=== PATIENT | female | born 1960 | race Caucasian/White ===

== ENCOUNTER 2020-05-12 12:46 | Outpatient (CLI) | payer BC, SELFPAY ==
[2020-05-12 14:24] LABS: Alanine Aminotransferase 18 U/L (4-35); Aspartate Amino Transferase 25 U/L (14-36); Cholesterol 167 mg/dL (0-200); HDL Direct 44 mg/dL; Triglycerides 127 mg/dL (<150)
[2020-05-12 14:35] LABS: LDL Cholesterol Direct 99 mg/dL
[2020-05-12 14:52] LABS: Add Urine Microscopic? YES; Appearance Urine Clear (Clear); Bilirubin Urine Negative (Negative); Blood Urine Negative (Negative); Color Urine Yellow (Yellow); Glucose Urine UA 3+ mg/dL (Negative); Ketones Urine Trace mg/dL (Negative); Leukocyte Esterase Ur Trace LEU/UL (NEGATIVE); Mucus Urine Rare /lpf; Nitrate Urine Negative (Negative); Protein Urine Negative (Negative); RBC Urine 0-2 /hpf (0-2); Specific Grav Ur 1.024 (1.001-1.035); Squamous Epithelial Cell Urine Few /hpf (Few); Urobilinogen Urine Negative mg/dL (<2.0); WBC Urine 0-3 /hpf (0-3)
== END 2020-05-12 12:47 | disposition home or self-care (01) ==
PROVIDERS: PCP Family Medicine; Visit Provider Internal Medicine Cardiovascular Disease
DX: E78.5 Hyperlipidemia, unspecified (principal); E11.69 Type 2 diabetes mellitus with other specified complication
CPT/HCPCS: 36415; 80061; 81001; 84450; 84460

== ENCOUNTER 2020-12-24 14:09 | Outpatient (CLI) | payer BC, SELFPAY ==
--- NOTE | ~2020-12-24 | US_ITS ---
EXAMINATION: US art doppler w press DOTTY PEACE DATE: 12/24/2020 16:29 ECOLOGIST INDICATION: Lower extremity pain TECHNIQUE: Segmental pressures and plethysmographic and Doppler waveforms of the brachial and lower e xtremity arteries were obtained. COMPARISON: None. FINDINGS: Right and left brachial artery pressures of 129 mm Hg and 136 mm Hg, respectively, are concordant (no rmal difference <= 30 mmHg). The right high-thigh pressure index is 1.23 (normal > 1.2). The right ankle-brachial index (TANJA) is 1 .2 (normal >= 0.9-1.0). The right great toe-brachial index (TBI) is 0.87 (normal >= 0.60). The right lower extremity segmental pressure gradients are normal (normal gradients <= 20-30 mmHg between adjac ent levels on the same leg or the same levels on the two legs). Arterial Doppler waveforms are biphas ic. The left high-thigh pressure index is 1.26. The left TANJA is 1.07. The left TBI is 0.85. The left lowe r extremity segmental pressure gradients are normal. Arterial Doppler waveforms are biphasic. IMPRESSION: 1. Normal lower extremity arterial Doppler. Reviewed, dictated and finalized at location A. OGIST
== END 2020-12-24 14:10 | disposition home or self-care (01) ==
LOC: ANHIMG 14:13
PROVIDERS: PCP Family Medicine; Visit Provider Internal Medicine Cardiovascular Disease
DX: M79.604 Pain in right leg (principal); M79.605 Pain in left leg
CPT/HCPCS: 93923

== ENCOUNTER 2022-08-21 09:39 | Outpatient (CLI) | payer BC, SELFPAY ==
[2022-08-21 10:30] LABS: Anion Gap 10 mmol/L (8-16); Blood Urea Nitrogen 12 mg/dL (7-17); Calcium 9.3 mg/dL (8.4-10.2); Carbon Dioxide 31 mmol/L (22-30); Chloride 99 mmol/L (98-107); Estimated Glomerular Filt Rate > 60; Glucose 160 mg/dL (65-110); Potassium 3.4 mmol/L (3.4-5.0); Sodium 140 mmol/L (137-145)
--- NOTE | 2022-08-21 10:30 | ECG_ITS ---
Measurements Intervals [place] Rate: 79 P: 27 MA: 170 QRS: 1 QRSD: 102 T: 74 QT: 369 QTc: 424 Interpretive Statements SINUS RHYTHM BASELINE ARTIFACT LOW-VOLTAGE QRS IN PRECORDIAL LEADS NONSPECIFIC T-WAVE ABNORMALITY BORDERLINE ECG NO PREVIOUS ECG AVAILABLE FOR COMPARISON Electronically Signed On 08-21-2022 15:10:31 CDT by Lei Sarkar M.D.
== END 2022-08-21 09:40 | disposition home or self-care (01) ==
LOC: ANHSURGERY 09:44
PROVIDERS: Anesthesiology; PCP Family Medicine; Visit Provider Orthopaedic Surgery
DX: E11.9 Type 2 diabetes mellitus without complications (principal); Z01.818 Encounter for other preprocedural examination; R94.31 Abnormal electrocardiogram [ECG] [EKG]
CPT/HCPCS: 36415; 80048; 93005

== ENCOUNTER 2022-08-23 02:18 | Day surgery (SDC) | payer BC, SELFPAY ==
[2022-08-16 14:58] VITALS: BMI 24.2
--- NOTE | 2022-08-16 15:09 | PC.NURSE ---
Report to the Outpatient Waiting Room, entrance under the green pavilion located off [facility], at time 10:00 on date 08/23/22. OR Time: 12:00. Time changes happen often and if your time is changed the preop area will call you the afternoon before. - You and your visitor will be asked to self-screen and do not enter if you have any COVID symptoms. - Only one visitor and NO children visitors are allowed at this time. - The patient visitor is requested to leave or wait in car when not with patient due to restrictions. - A mask is required within the hospital. Patients may have clear liquids (water, carbonated beverages, clear teas, apple juice) until 3 hours prior to surgery (9:00) with a maximum of 20 ounces. - No food from midnight until time of surgery Take the following medications with a SIP of water the morning of surgery: CARVEDILOL Medications to discontinue per physician: PLAVIX Date to take last dose: PER DR. HENRIQUEZ Please no make-up, nail zambian, hairspray, perfume, deodorant, or body powder the day of surgery. No jewelry (including any body piercings) or valuables the day of surgery, leave them at home. Please take a shower or bath the night before, or the morning of, surgery with an antibacterial soap. Wear comfortable, loose fitting clothing. - Jewelry must be removed prior to entering the operating room. Rings and piercings that are not removed may be cut off. - The hospital will not accept responsibility for valuables. - Please leave all valuables, including medications, at home the day of surgery. If you are going home after surgery, a licensed chain saw driver must drive you home. - NO public transportation without another adult. - We recommend that an adult stay with you for 24 hours following discharge. - We also recommend that you do not drive, make important decision, drink alcoholic beverages, or take any drugs that were not prescribed by your health care provider for at least 24 hours after your discharge time. Follow any additional instructions given to you from your surgeon. If you or anyone in your household have experienced Covid symptoms in the past week, please notify your surgeon or the nurse liaison at the phone number below for possible testing. Telephone instructions given to PT - GEOFF CHAPMAN and asked if any additional questions and then verbalized understanding. Patient advised to call surgeon office or pre surgery nurse liaison [phone] if any additional questions.
--- NOTE | 2022-08-22 16:20 | PM.IMHP ---
H&P: HPI History of Present Illness Date/Time: 08/22/22 16:20 Chief Complaint: Right carpal tunnel syndrome Narrative: 61-year-old female patient of Dr. Villegas who presents for right carpal tunnel release. She has been complaining of pain and numbness in both of her hands right being more symptomatic than the left. This is been going on for several months. Patient has had EMG nerve conduction velocity done in October of 2021. It does show carpal tunnel syndrome on the right. Patient feels that she is having symptoms on a regular basis they are bad enough that she would like to proceed at this point with surgery and presents today for that. Review of Systems Review of Systems: All systems reviewed & are unremarkable except as noted in HPI and below PMFSH Past Medical History Medical History (Updated 08/23/22 @ 09:55 by Yousuf Gabriel DO) CVA (cerebral vascular accident) Diabetes type 2, controlled Hyperlipidemia Hypertension Pacemaker Surgical History Surgical History (Updated 08/23/22 @ 09:55 by Yousuf Gabriel DO) History of tubal ligation Social History Social History Smoking status: Never smoker Alcohol intake: never Substance use: never Substance use type: does not use Living arrangements: with family Spiritual care concerns: No Meds Home Medications and Allergies Home Medications Medication Instructions Recorded Confirmed Type atorvastatin 40 mg tablet 40 mg PO HS 08/16/22 08/23/22 History carvedilol 25 mg tablet 25 mg PO DAILY 08/16/22 08/23/22 History clopidogrel 75 mg tablet 75 mg PO DAILY 08/16/22 08/16/22 History cyanocobalamin (vitamin B-12) 1,000 mcg subcut [id number] 08/16/22 08/23/22 History 1,000 mcg/mL injection solution lisinopril 10 mg tablet 10 mg PO DAILY 08/16/22 08/23/22 History metformin 500 mg tablet,extended 1,000 mg PO DAILY 08/16/22 08/23/22 History release 24 hr semaglutide 7 mg tablet (Rybelsus) 7 mg PO DAILY 08/16/22 08/23/22 History sitagliptin 100 mg tablet (Januvia) 100 mg PO DAILY 08/16/22 08/23/22 History spironolactone 25 mg tablet 25 mg PO DAILY 08/16/22 08/23/22 History Allergies Allergy/AdvReac Type Severity Reaction Status Date / Time hydrocodone AdvReac Intermediate N/V;DIZZINE Verified 08/23/22 10:18 SS Exam Narrative: 61-year-old female alert pleasant. She is 5 ft tall and 127 lb. Her neck range of motion causes some mild soreness. Negative Spurling's maneuver. Her right wrist she has a negative Tinel's over the median nerve, positive carpal tunnel compression test which causes tingling in the fingers. Positive Phalen's maneuver. 2+ radial pulse. She reports subtle sensation of tingling primarily in the central 3 fingers right hand. Full range of motion of the wrist and fingers. No swelling in the wrist or fingers. Resp: Auscultation: clear to auscultation bilaterally Cardio: Rate: regular rate Rhythm: regular rhythm Assessment and Plan Assessment and plan (1) Right carpal tunnel syndrome: Code(s): G56.01 - Carpal tunnel syndrome, right upper limb Status: Acute Plan 61-year-old female who has right carpal tunnel syndrome with symptoms on a daily basis. She does have a positive EMG study. Again patient would like to proceed with surgery at this point rather continue nonsurgical treatment. Surgical procedure as well as the risks and complications were discussed in detail questions were answered and we will proceed. Patient will see her primary care doctor for pre-surgical clearance. She will also see Dr. Espinoza the quality control scientist. She has a history of diabetes as well as a pacemaker. She will stop her Plavix 1 week prior to surgery but maintain her baby aspirin through the time of surgery due the fact she has had a CVA in the past. Patient did have an echo done which showed normal left ventricular systolic function with ejectio
[2022-08-23] VITALS (8 sets, daily range): BP systolic 83–135; BP diastolic 49–77; PULSE 68–89; RESP 13–16; TEMP 26.6–36.5; O2SAT 95–100
--- NOTE | 2022-08-23 09:54 | WPDANESEPPF ---
Anes - Initial Pre Proc Eval Procedure: Operation Date: 08/23/22 12:00 Proposed Procedures p Right Carpal Tunnel Release - Barron Fuentes MD Date/Time: 08/23/22 09:54 Surgeon: Barron Fuentes MD Pre Op Diagnosis: Right Carpal Tunnel Syndrome Patient Data Age: 61 Gender: F Height: 1.5 m Weight: 54.43 kg Allergies Allergy/AdvReac Type Severity Reaction Status Date / Time hydrocodone AdvReac Intermediate N/V;DIZZINE Verified 08/16/22 14:54 SS Home Medications Medication Instructions Recorded Confirmed Type atorvastatin 40 mg tablet 40 mg PO HS 08/16/22 08/16/22 History carvedilol 25 mg tablet 25 mg PO DAILY 08/16/22 08/16/22 History clopidogrel 75 mg tablet 75 mg PO DAILY 08/16/22 08/16/22 History cyanocobalamin (vitamin B-12) 1,000 mcg subcut [id number] 08/16/22 08/16/22 History 1,000 mcg/mL injection solution lisinopril 10 mg tablet 10 mg PO DAILY 08/16/22 08/16/22 History metformin 500 mg tablet,extended 1,000 mg PO DAILY 08/16/22 08/16/22 History release 24 hr semaglutide 7 mg tablet (Rybelsus) 7 mg PO DAILY 08/16/22 08/16/22 History sitagliptin 100 mg tablet (Januvia) 100 mg PO DAILY 08/16/22 08/16/22 History spironolactone 25 mg tablet 25 mg PO DAILY 08/16/22 08/16/22 History Patient hx anesthesia problems: none Family hx anesthesia problems: none Results Review: All pre-operative results and documents have been reviewed as part of the pre-operative evaluation. [facility] Past Medical History Medical History (Updated 08/23/22 @ 09:55 by Yousuf Gabriel DO) CVA (cerebral vascular accident) Diabetes type 2, controlled Hyperlipidemia Hypertension Pacemaker Surgical History Surgical History (Updated 08/23/22 @ 09:55 by Yousuf Gabriel DO) History of tubal ligation Social History Social History Smoking status: Never smoker Alcohol intake: never Substance use: never Substance use type: does not use Living arrangements: with family Spiritual care concerns: No Anes - Eval Final PreProcedure Day of Procedure 08/23/22 09:54 Patient weight: obese Heart: regular rate and rhythm Lungs: clear to auscultation Airway: Mallampati scale class III Neurological: alert and oriented Last oral intake: >/= 8 hours ASA classification: III Emergent: no Anesthetic plan: proceed Anesthesia type and monitoring: general LMA and standard monitoring Results Review: All pre-operative results and documents have been reviewed as part of the pre-operative evaluation. Informed Consent: The patient's anesthetic plan and its attendant risks and benefits were discussed with the patient/family/POA. Questions were solicited and answers provided to the satisfaction of the patient/family/POA.
[2022-08-23] MEDS: ACETAMINOPHEN 500 MG TABLET 1000 MG PO (10:28)
[2022-08-23] MEDS: LACTATED RINGERS 1,000 ML 30 ML IV CONT ×2 (10:40→12:28)
[2022-08-23 10:46] LABS: Glucose Point of Care 148 mg/dl (65-105)
--- NOTE | 2022-08-23 11:16 | WPDHPUPDATE1 ---
History and Physical Update Update Date/Time: 08/23/22 11:16 History and Physical has been reviewed, including an updated exam of the patient. There are NO changes in the patient's condition. Risks, benefits, and alternatives have been discussed and questions answered. Patient agrees to proceed with procedure.
[2022-08-23] MEDS: KETOROLAC 15 MG/ML VIAL (*BKC) IV PUSH (11:18)
[2022-08-23] MEDS: ceFAZolin 2 GM/D5W 50 ML 2 GM/50 ML BAG IVPB (11:48)
[2022-08-23 12:34] LABS: Glucose Point of Care 104 mg/dl (65-105)
--- NOTE | 2022-09-08 14:13 | P.OP_ITS ---
Procedure Note - Detailed Date of Procedure 08/23/22 Pre-op Diagnosis Right Carpal Tunnel Syndrome Post-op Diagnosis Same Procedure Performed Right carpal tunnel release Surgeon Barron Fuentes MD Anesthesia General Description of Procedure patient was brought to the operating room and general anesthesia was administered to the right arm was prepped and draped in usual fashion. Local anesthesia 1% lidocaine was administered. Limb was exsanguinated tourniquet elevated to 200 mmHg. A 2 cm longitudinal incision was made the base of the palm in line with the radial border of the 4th ray. Incision was carried down through the superficial palmar fascia to the transverse carpal ligament which was longitudinally released. complete release was achieved distally. Proximally the subcutaneous fat was elevated off the distal volar forearm fascia and a Mohawk elevator pass underneath the fascia to from the underlying nerve in the fascia split for distance of 3 cm proximal to the flexor crease the risk completed decompression. The nerve appeared unremarkable no masses in the canal. Wound was irrigated tourniquet released hemostasis was achieved skin closed with 5 0 nylon suture and a soft bulky dressing applied patient transferred to postop recovery room in stable condition. Estimated Blood Loss -5.0 Tourniquet Time 10 Complications No immediate complications Condition Stable Disposition PACU
== END 2022-08-23 14:35 | disposition home or self-care (01) ==
PROVIDERS: PCP Family Medicine; Visit Provider Orthopaedic Surgery
PROC: (CPT 64721; principal; 2022-08-23 12:00)
DX: G56.01 Carpal tunnel syndrome, right upper limb (principal); E11.9 Type 2 diabetes mellitus without complications; E78.5 Hyperlipidemia, unspecified; I10 Essential (primary) hypertension; Z95.0 Presence of cardiac pacemaker; Z86.73 Personal history of transient ischemic attack (TIA), and cerebral infarction without residual deficits; Z79.02 Long term (current) use of antithrombotics/antiplatelets; Z79.84 Long term (current) use of oral hypoglycemic drugs
CPT/HCPCS: 64721; 82948; A9270; J0690; J1100; J1885; J2250; J2370; J2405; J2704; J3010; J7120

== ENCOUNTER 2023-01-27 11:57 | Inpatient (IN) | payer BC, MEDICARE, SELFPAY ==
[2023-01-27] VITALS (17 sets, daily range): BP systolic 112–170; BP diastolic 55–88; PULSE 77–89; RESP 12–23; TEMP 36.6–36.7; O2SAT 95–99
--- NOTE | ~2023-01-27 | CT_ITS ---
EXAMINATION: CT brain wo con DATE: 01/27/2023 12:39 INDICATION: Right-sided numbness TECHNIQUE: Computed tomography (CT) of the head was performed without intravenous contrast. Sagittal and coronal reconstructions were performed. The mA was adjusted according to patient size. Iterative reconstruction technique was employed. The dose-length product was 605.33 mGy-cm. COMPARISON: head CT dated 10/31/2018 FINDINGS: Unchanged small old lacunar infarcts at the bilateral basal ganglia and left sameera and additional smal l old infarct in the right cerebral hemisphere. New small region of encephalomalacia consistent with interval development of an additional small old infarct in the right frontotemporoparietal region colleen ng the posterior aspect of the sylvian fissure. No acute intracranial hemorrhage, acute infarction or abnormal extra axial fluid collection. There is moderate scattered white matter hypoattenuation cons istent with chronic small vessel ischemic disease. Ventricles are normal and symmetric. No mass/mass effect. Intracranial calcified cerebral atherosclerosis is noted. The orbits, paranasal sinuses and m astoid air cells are normal. IMPRESSION: 1. No acute intracranial process. 2. Small old infarct in the right frontotemporoparietal region which is new since the prior study and a few additional unchanged old infarcts at the bilateral basal ganglia, left sameera and right cerebell ar hemisphere. 3. Moderate scattered white matter hypoattenuation consistent with chronic small vessel ischemic dise ase. Reviewed, dictated and finalized at location A. T STOCKMAN IMPRESSION: 1. No acute intracranial process. 2. Small old infarct in the right frontotemporoparietal region which is new sin ce the prior study and a few additional unchanged old infarcts at the bilateral basal ganglia, left sameera and right cerebellar hemisphere. 3. Moderate scattered white matter hypoattenuation consistent with chronic smal l vessel ischemic disease.
--- NOTE | ~2023-01-27 | CT_ITS ---
CT ANGIOGRAM NECK AND HEAD History: CVA. Technique: Noncontrast imaging through the brain was performed. Serial spiral axial images through th e head and neck were then obtained during arterial phase IV injection of 100 cc of Omnipaque 350. 3-D postprocessing and MIP images were then reconstructed on the remote workstation. Dose reduction tech nique was used on this scan by utilizing automated exposure control and iterative reconstruction tech nique. The dose-length product (DLP) was 1365.54 mGy-cm. COMPARISON: 01/27/2023 CTA neck findings: Bilateral vertebral are patent. There is a probable focal high-grade stenosis of the distal right vertebral artery related to prominent calcified plaque (series 5 images 140-143). Th ere is a probable moderate focal stenosis of the distal left vertebral artery at the site of calcifie d plaque (series 5 images 141-143). Bilateral common carotid, internal carotid, and external carotid arteries are patent. The proximal ri ght internal carotid artery demonstrates 0% stenosis relative to the normal distal artery lumen diame ter. The proximal left internal carotid artery demonstrates 0% stenosis relative to the normal distal artery lumen diameter. CTA head findings: Basilar artery and posterior cerebral arteries are patent. Distal internal carotid arteries, middle cerebral arteries, and anterior cerebral arteries are patent. There is extensive at herosclerotic calcification the cavernous portions of the distal internal carotid arteries, with prob able moderate to high-grade stenosis in the cavernous portion of the distal right internal carotid ar reynold. No large vessel occlusion or aneurysm. No acute abnormality evident on noncontrast brain CT images. Impression: Focal high-grade stenosis of the distal right vertebral artery, as detailed above. Focal moderate kimberlee nosis of the distal left vertebral artery, as detailed above. Atherosclerotic calcifications in the bilateral cavernous internal carotid arteries, with probable fo tony moderate stenosis in the cavernous distal right internal carotid artery. No stenosis or occlusion at the proximal internal cervical carotid arteries. No other significant findings. Reviewed, dictated and finalized at location . Impression: Focal high-grade stenosis of the distal right vertebral artery, as detailed abo ve. Focal moderate stenosis of the distal left vertebral artery, as detailed ab ove. Atherosclerotic calcifications in the bilateral cavernous internal carotid marie zulema, with probable focal moderate stenosis in the cavernous distal right inter nal carotid artery. No stenosis or occlusion at the proximal internal cervical carotid arteries. No other significant findings.
--- NOTE | ~2023-01-27 | XR_ITS ---
EXAMINATION: XR chest 1V DATE: 01/27/2023 12:41 INDICATION: Right-sided numbness TECHNIQUE: frontal view of the chest was obtained. COMPARISON: Chest radiograph dated 11/02/2018 FINDINGS: The lungs remain clear with no focal airspace opacities, pulmonary edema, pleural effusion or pneumot horax. The cardiomediastinal silhouette is normal. Dual lead pacemaker seen with leads projecting ove r the expected locations of the right atrium and right ventricle. Cholecystectomy clips in right uppe r quadrant. IMPRESSION: 1. No acute cardiopulmonary disease. Reviewed, dictated and finalized at location A. EMIC INTERVENTIONIST
--- NOTE | 2023-01-27 12:21 | ECG_ITS ---
Measurements Intervals [place] Rate: 81 P: 33 WI: 192 QRS: -20 QRSD: 102 T: 8 QT: 356 QTc: 416 Interpretive Statements SINUS RHYTHM LEFT VENTRICULAR HYPERTROPHY WITH ST-T CHANGE BORDERLINE R WAVE PROGRESSION, ANTERIOR LEADS BASELINE ARTIFACT- I, II, III, AVR, AVL, AVF, V1-V6 BORDERLINE ECG COMPARED TO ECG 08/21/2022 10:19:25 NO SIGNIFICANT CHANGES Electronically Signed On 01-27-2023 12:35:28 CARE TRANSITION MANAGER by Ivan Purcell D.O.
--- NOTE | 2023-01-27 12:22 | ED.GENADULT ---
HPI - General Adult General Chief complaint: Neuro Symptoms/Deficit Stated complaint: FACIAL DROOPING, SPEECH SLURRED X1 DAY Time Seen by Provider: 01/27/23 12:03 Source: EMS and RN notes reviewed History of Present Illness HPI narrative: Patient presents emergency department from home for right-sided facial droop. Patient states symptoms began around noon on January 26 states that she has had drooping of the right side of her face as well as slurred speech also notes that she has been having trouble drinking from that side states that she has noted no weakness in her arms or legs states she does have a history of previous TIAs as well as previous strokes and is currently on Plavix which she has been taking she denies any fevers or chills chest pain shortness of breath or any other symptoms Related Data Home Medications Medication Instructions Recorded Confirmed atorvastatin 40 mg tablet 40 mg PO HS 08/16/22 08/23/22 carvedilol 25 mg tablet 25 mg PO DAILY 08/16/22 08/23/22 clopidogrel 75 mg tablet 75 mg PO DAILY 08/16/22 08/16/22 cyanocobalamin (vitamin B-12) 1,000 mcg subcut [id number] 08/16/22 08/23/22 1,000 mcg/mL injection solution lisinopril 10 mg tablet 10 mg PO DAILY 08/16/22 08/23/22 metformin 500 mg tablet,extended 1,000 mg PO DAILY 08/16/22 08/23/22 release 24 hr semaglutide 7 mg tablet (Rybelsus) 7 mg PO DAILY 08/16/22 08/23/22 sitagliptin phosphate 100 mg 100 mg PO DAILY 08/16/22 08/23/22 tablet (Januvia) spironolactone 25 mg tablet 25 mg PO DAILY 08/16/22 08/23/22 Allergies Allergy/AdvReac Type Severity Reaction Status Date / Time hydrocodone AdvReac Intermediate N/V;DIZZINE Verified 01/27/23 12:13 SS Review of Systems Review of Systems: Gen.: Denies fevers or chills Eyes: Denies eye pain or visual change ENT: Denies congestion Respiratory: Denies shortness of breath or cough CV: Denies chest pain or palpitations GI: Denies abdominal pain nausea, emesis or diarrhea Musculoskeletal: Denies back pain or muscle pain Neuro see HPI Skin: Denies rash Except as documented, all other systems reviewed and negative [facility] Past Medical History Medical History (Updated 01/27/23 @ 14:34 by Wilfred Arce DO) CVA (cerebral vascular accident) Diabetes type 2, controlled Hyperlipidemia Hypertension Pacemaker Surgical History Surgical History (Updated 01/27/23 @ 14:23 by Keila Casillas NP) History of carpal tunnel release History of tubal ligation Hx laparoscopic cholecystectomy Family History Family History (Updated 01/27/23 @ 14:24 by Keila Casillas NP) Mother Acute myocardial infarction Cerebrovascular accident Carcinoma of colon Breast cancer Hypertension Heart disease Diabetes mellitus Father Hypertension Acute myocardial infarction Lung disease Sibling Liver cancer Diabetes mellitus Social History Social History (Updated 01/27/23 @ 14:25 by Keila Casillas NP) 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 Smoking status: Never smoker Alcohol intake: never Substance use: never Substance use type: does not use Living arrangements: with family Gender identity (if verbalized by the patient): Female Sexual Orientation (if Verbalized by the Patient): Straight or Heterosexual Spiritual care concerns: No Exam Narrative: APPEARANCE: No acute distress, nontoxic, resting in bed HEENT: Normocephalic, atraumatic, OMM, TMs clear bilaterally EYES: PERRL, EOMI RESPIRATORY: No respiratory distress, clear to auscultation bilaterally with no rhonchi wheezing or rales CARDIOVASCULAR: RRR s murmur ABDOMINAL: Soft, nontender, nondistended MUSCULOSKELETAL: Moves all extremities. No clubbing, cyanosis or edema. NEURO: A and O ?4, following commands, speech normal, right-sided facial droop, muscle strength 5 out of 5 in the bilateral upper and lower extremities, decreased sensation over the right face as well as the right upper extremity with normal
[2023-01-27 12:36] LABS: Basophils Absolute Auto 0.1 K/mm3 (0.0-0.1); Basophils Percent Auto 1.2 % (0.2-1.2); Eosinophils Absolute Auto 0.4 K/mm3 (0-0.3); Eosinophils Percent Auto 6.5 % (0-4.4); Hematocrit 40.8 % (37.0-47.0); Hemoglobin 13.7 g/dL (12.0-15.0); Immature Granulocyte Absolute 0.02 K/mm3 (0.00-0.031); Immature Granulocyte Percent A 0.3 % (0-0.5); Lymphocytes Absolute Auto 1.54 K/mm3 (0.9-3.2); Lymphocytes Percent Auto 26.9 % (18.3-44.2); Mean Corpuscular HGB Conc 33.6 g/dl (32-36); Mean Corpuscular Hemoglobin 29.8 pg (26-34); Mean Corpuscular Volume 88.7 fl (80-100); Mean Platelet Volume 11.5 fl (7.4-10.4); Monocytes Absolute Auto 0.4 K/mm3 (0.1-0.6); Monocytes Percent Auto 6.3 % (2.6-8.5); Neutrophils Absolute Auto 3.4 K/mm3 (1.3-6.7); Neutrophils Percent Auto 58.8 % (45.5-73.1); Platelet Count Result 165 k/mm3 (150-375); Red Cell Distribution Width 13.2 % (11.5-14.5); White Blood Count 5.7 K/mm3 (4.5-10.0)
[2023-01-27 12:51] LABS: Alanine Aminotransferase 17 U/L (6-35); Albumin Level 4.6 g/dL (3.5-5.1); Alkaline Phosphatase 60 U/L (38-126); Anion Gap 6 mmol/L (8-16); Aspartate Amino Transferase 21 U/L (14-36); Bilirubin,Total 0.5 mg/dL (0.2-1.3); Blood Urea Nitrogen 11 mg/dL (7-17); Calcium 9.3 mg/dL (8.4-10.2); Carbon Dioxide 32 mmol/L (22-30); Chloride 101 mmol/L (98-107); Estimated Glomerular Filt Rate > 60; Glucose 101 mg/dL (65-110); Potassium 3.8 mmol/L (3.4-5.0); Prothrombin Time 12.8 Seconds (11.1-14.7); Sodium 139 mmol/L (137-145)
[2023-01-27 12:52] LABS: Partial Thromboplastin Time 28.1 SECONDS (22.3-36.8)
[2023-01-27 13:02] LABS: Troponin I < 0.012 ng/mL (0.000-0.034)
--- NOTE | 2023-01-27 14:20 | PM.IMHP ---
H&P: HPI History of Present Illness Date/Time: 01/27/23 14:20 Chief Complaint: Neuro symptoms Narrative: This is a 62-year-old female patient who has a history of hypertension, diabetes and CVAs. The patient came to the emergency room due facial droop. This started around noon on January 26 the patient stated that she had drooping on the right side of her face as well as slurred speech and was having difficulty drinking from the side. The patient is currently on Plavix. Head CT was read as the followingNo acute intracranial process. 2. Small old infarct in the right frontotemporoparietal region which is new since the prior study and a few additional unchanged old infarcts at the bilateral basal ganglia, left sameera and right cerebellar hemisphere. 3. Moderate scattered white matter hypoattenuation consistent with chronic small vessel ischemic disease. Neurology has been consulted. Troponin nonreactive x2. Chest x-ray was read as no acute cardiopulmonary disease. The patient is being admitted to observation status on the date of service of 01/27/2023. Review of Systems Review of Systems: See HPI All systems reviewed & are unremarkable except as noted in HPI and below Constitutional: Constitutional: Reports as per HPI and Reports no additional constitutional complaints Eyes: Eyes: Reports as per HPI and Reports no additional eye complaints ENT: Reports system reviewed and no additional complaints, except as documented and Reports Normal hearing present Cardiovascular: Cardiovascular: Reports no additional cardiovascular complaints Respiratory: Respiratory: Reports no additional respiratory complaints and Reports no additional respiratory complaints Gastrointestinal: Gastrointestinal: Reports as per HPI and Reports no additional gastrointestinal complaints Musculoskeletal: Musculoskeletal: Reports no additional musculoskeletal complaints Integumentary/Breasts: Skin/Breast: Reports system reviewed and no additional complaints, except as docu and Reports as per HPI Neurologic: Reports system reviewed and no additional complaints, except as documented, Reports as per HPI and Reports Normal hearing present Psychiatric: Psychiatric: Reports no additional psychiatric complaints and Reports as per HPI Endocrine: Endocrine: Reports no additional endocrine complaints Hematologic/Lymphatic: Hematologic/Lymphatic: Reports no additional hematologic/lymphatic complaints Allergic/Immunologic: Allergic/Immunologic: Reports no additional allergic/immunologic complaints [facility] Past Medical History Medical History (Updated 01/27/23 @ 19:18 by Keila Casillas NP) CVA (cerebral vascular accident) Diabetes type 2, controlled Hyperlipidemia Hypertension Mitral valve prolapse Pacemaker Surgical History Surgical History (Updated 01/27/23 @ 14:23 by Keila Casillas NP) History of carpal tunnel release History of tubal ligation Hx laparoscopic cholecystectomy Family History Family History Mother Acute myocardial infarction Cerebrovascular accident Carcinoma of colon Breast cancer Hypertension Heart disease Diabetes mellitus Father Hypertension Acute myocardial infarction Lung disease Sibling Liver cancer Diabetes mellitus Social History Social History (Updated 01/27/23 @ 19:19 by Keila Casillas NP) Social History: She is and lives with . They have 5 children. 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 Code status full code Smoking status: Never smoker Second hand tobacco smoke exposure: Yes (parents smoked) Alcohol intake: never Substance use: never Substance use type: does not use Lack of Transportation: No Lack of Food: Never True Current Housing: I Have Housing Concerned About Future Housing: No Difficulty Paying Gas/Electric Bills: No Difficulty Paying for Meds: No Currently Unemployed: No Educ
--- NOTE | 2023-01-27 16:05 | ADMGEN ---
This patient, Dixie Ibarra, was admitted to [address] [place] [address] Room [facility] at 1523. Patient/family oriented to hospital policies and general routines including ID bracelet, bed and alarms, visiting hours, pain management, procedures, bathroom and other care routines, personal items, smoking policy, room service/diet, and visiting hours. Information on how to activate the Rapid Response Team has been discussed. Patient/Family are encouraged to report perceived risks to care and to ask questions if they do not understand what they are told or what they should do.
[2023-01-27 16:48] LABS: Glucose Point of Care 93 mg/dl (65-105)
[2023-01-27 17:01] LABS: Troponin I 0.019 ng/mL (0.000-0.034)
[2023-01-27 20:07] LABS: Troponin I 0.022 ng/mL (0.000-0.034)
[2023-01-27 20:08] LABS: Glucose Point of Care 111 mg/dl (65-105)
[2023-01-27] MEDS: ATORVASTATIN 40 MG TABLET PO (21:16)
[2023-01-28] VITALS (10 sets, daily range): BP systolic 128–145; BP diastolic 61–80; PULSE 68–82; RESP 16–18; TEMP 36.6–36.7; O2SAT 98–99
[2023-01-28 05:56] LABS: Basophils Absolute Auto 0.1 K/mm3 (0.0-0.1); Basophils Percent Auto 0.9 % (0.2-1.2); Eosinophils Absolute Auto 0.4 K/mm3 (0-0.3); Eosinophils Percent Auto 6.4 % (0-4.4); Hematocrit 39.5 % (37.0-47.0); Hemoglobin 13.5 g/dL (12.0-15.0); Immature Granulocyte Absolute 0.02 K/mm3 (0.00-0.031); Immature Granulocyte Percent A 0.4 % (0-0.5); Lymphocytes Absolute Auto 1.92 K/mm3 (0.9-3.2); Lymphocytes Percent Auto 35.1 % (18.3-44.2); Mean Corpuscular HGB Conc 34.2 g/dl (32-36); Mean Corpuscular Hemoglobin 30.1 pg (26-34); Mean Corpuscular Volume 88.2 fl (80-100); Mean Platelet Volume 11.2 fl (7.4-10.4); Monocytes Absolute Auto 0.5 K/mm3 (0.1-0.6); Monocytes Percent Auto 9.5 % (2.6-8.5); Neutrophils Absolute Auto 2.6 K/mm3 (1.3-6.7); Neutrophils Percent Auto 47.7 % (45.5-73.1); Platelet Count Result 167 k/mm3 (150-375); Red Blood Count 4.48 M/mm3 (4.2-5.4); Red Cell Distribution Width 13.1 % (11.5-14.5); White Blood Count 5.5 K/mm3 (4.5-10.0)
[2023-01-28 06:07] LABS: Alanine Aminotransferase 15 U/L (6-35); Albumin Level 4.4 g/dL (3.5-5.1); Alkaline Phosphatase 57 U/L (38-126); Anion Gap 6 mmol/L (8-16); Aspartate Amino Transferase 20 U/L (14-36); Bilirubin,Total 0.6 mg/dL (0.2-1.3); Blood Urea Nitrogen 13 mg/dL (7-17); Calcium 9.5 mg/dL (8.4-10.2); Carbon Dioxide 32 mmol/L (22-30); Chloride 101 mmol/L (98-107); Estimated Glomerular Filt Rate > 60; Glucose 111 mg/dL (65-110); Potassium 3.2 mmol/L (3.4-5.0); Sodium 139 mmol/L (137-145)
--- NOTE | 2023-01-28 06:23 | PC.NURSE ---
Daylight Savings Time For Daylight Savings Time Ending in the Fall - Clocks are moved back. For Daylight Savings Time Beginning in the Spring - Clocks are moved ahead. For [facility], the time of change occurs at 0200 hrs. Time is taken from the room server. This entry on the patient's chart recognizes the change in time reflected during documentation. Example: 2 entries for vital signs may be charted for 0200 hrs.
[2023-01-28 07:06] LABS: Hemoglobin A1C 5.4 % (<5.7)
[2023-01-28] MEDS: lisinopriL 10 MG TABLET PO (08:14)
[2023-01-28] MEDS: carvediloL 25 MG TABLET PO (08:14)
[2023-01-28] MEDS: CLOPIDOGREL BISULFATE 75 MG TABLET PO (08:15)
[2023-01-28 08:56] LABS: Glucose Point of Care 107 mg/dl (65-105)
[2023-01-28] MEDS: POTASSIUM CHLORIDE 20 MEQ PACKET (FOR LIQUID) 40 MEQ PO (09:08)
[2023-01-28] MEDS: ASPIRIN 81 MG ENTERIC TABLET PO (09:09)
--- NOTE | 2023-01-28 11:51 | PM.IMPN ---
Progress Note: A&P Assessment and Plan (1) CVA (cerebral vascular accident): Code(s): I63.9 - Cerebral infarction, unspecified Status: Acute Assessment and Plan: -an echo has been ordered -neurology has been consulted -PT OT evaluation greatly be appreciated. Head CT was read as 1. No acute intracranial process. 2. Small old infarct in the right frontotemporoparietal region which is new since the prior study and a few additional unchanged old infarcts at the bilateral basal ganglia, left sameera and right cerebellar hemisphere. 3. Moderate scattered white matter hypoattenuation consistent with chronic small vessel ischemic disease. The patient is on Plavix. (2) Hypertension: Code(s): I10 - Essential (primary) hypertension Status: Acute Assessment and Plan: Continue with lisinopril Continue with Coreg (3) Diabetes type 2, controlled: Code(s): E11.9 - Type 2 diabetes mellitus without complications Status: Acute Assessment and Plan: Accu-Cheks AC and HS with sliding scale insulin Hold metformin Continue januvia Valariesus is non formulary. (4) Hyperlipidemia: Code(s): E78.5 - Hyperlipidemia, unspecified Status: Acute Assessment and Plan: Continue with atorvastatin (5) Mitral valve prolapse: Code(s): I34.1 - Nonrheumatic mitral (valve) prolapse Status: Acute Assessment and Plan: An echo has been ordered Subjective Date/time seen: 01/28/23 11:51 No complaints Exam Const: General: cooperative, healthy appearing, comfortable, no acute distress, well developed, awake, Physically active, average body habitus and well nourished Nutritional Appearance: average body habitus and well nourished Orientation/consciousness: oriented to person, oriented to place, oriented to time and patient oriented x3 Limitations: no limitations HENMT: Head: normal to inspection, No palpable skull fracture present, normocephalic, atraumatic and abrasion Ears: hearing grossly normal bilaterally, external ears normal and TM's normal bilaterally Face/Nose/Sinus: Normal external nose present, Normal nares present and No nasal polyps present Mouth: Yes Normal oral and palatal mucosa present Throat: posterior oropharynx normal Other: Left facial drooping Eyes: General: appearance normal, both eyes and all related structures Alignment and Position: alignment normal Periorbital: periorbital findings normal Eyelids: eyelids normal Conjunctivae: conjunctivae normal Sclera: sclerae normal Cornea: corneas normal Pupils: Equal, round and reactive pupils present and Pupil accommodation reflex normal EOM: EOMs intact bilaterally Neck: Neck: normal visual inspection, full ROM, no lymphadenopathy, trachea midline and supple Thyroid: thyroid normal Carotids: normal carotid upstroke Lymphatic: no lymphadenopathy noted Chest: Chest palpation & inspection: normal inspection of the chest Resp: Effort & Inspection: normal respiratory effort Auscultation: clear to auscultation bilaterally Percussion: percussion normal Cardio: Palpation: normal PMI Rate: regular rate Rhythm: regular rhythm Heart sounds: S1 normal heart sound present and S2 normal heart sound present Peripheral pulses: Peripheral pulses 2+ throughout GI: Inspection: normal to inspection Auscultation: normal bowel sounds Rectal Exam: deferred : General: Yes no CVA tenderness Back/Spine/Pelvis: Back: no CVA tenderness Cervical Spine: cervical ROM normal Thoracic/Lumbar Spine: thoracic and lumbar spine normal to inspection Pelvis: no pain with anterior-posterior compression Skin: General skin exam: normal color Lesions: no lesions Rashes: no rashes Trauma: no lacerations or abrasions Wounds: no wounds Hair: normal Nails: normal Neuro: General: oriented to person, oriented to place, oriented to time and patient oriented x3 Cranial nerves: Yes Equal, round and reactive pupils present and Yes
[2023-01-28 12:14] LABS: Glucose Point of Care 171 mg/dl (65-105)
[2023-01-28 17:30] LABS: Glucose Point of Care 149 mg/dl (65-105)
[2023-01-28] MEDS: ATORVASTATIN 40 MG TABLET PO (20:04)
[2023-01-28 20:25] LABS: Glucose Point of Care 193 mg/dl (65-105)
[2023-01-29] VITALS (8 sets, daily range): BP systolic 120–158; BP diastolic 59–72; PULSE 66–79; RESP 16–18; TEMP 36.4–36.7; O2SAT 97–98
--- NOTE | 2023-01-29 | ECHO_ITS ---
Patient Info Name: Dixie Ibarra Age: 62 years : 1960 Gender: Female Ht: 59 in Wt: 125 lbs BSA: 1.55 m2 HR: 71 bpm BP: 120 / 59 mmHg Heart Rhythm: Sinus Rhythm Exam Date: 01/29/2023 9:33 AM Exam Location: [facility] Patient Status: Inpatient Admit Date: 01/28/2023 Staff Ordering Physician: Keila Casillas NP Ppap Coordinator: Dominick Rico RDCS, RT Attending Provider: Gustavo Chadwick MD Referring Physician: Sonja BRAVO; Exam Type: CA echo dop bubble study w con Study Info Indications - possible CVA Complete two-dimentional, color flow and Doppler transthoracic echocardiogram is performed with agitated saline and with contrast to opacify the left ventricle and to improve the delineation of the left ventricle endocardial borders. Strain analysis performed. Summary 1. Left ventricular chamber dimension is normal. 2. Left ventricular systolic function is mildly reduced, estimated at 40-45%. 3. There is mildly increased left ventricular wall thickness. 4. Right ventricular systolic function is normal. 5. There is mild mitral valve regurgitation. 6. There is mild tricuspid valve regurgitation. Left Ventricle Left ventricular chamber dimension is normal. Left ventricular systolic function is mildly reduced, estimated at 40-45%. There is mildly increased left ventricular wall thickness. Global longitudinal strain is abnormal at -13 %. Right Ventricle Linear artifact in right ventricle suggestive of catheter(s), pacemaker lead(s), or ICD lead(s). Right ventricular chamber dimension is normal. Right ventricular systolic function is normal. Left Atria Left atrial chamber dimension is normal. Right Atria Linear artifact in the right atrium suggestive of catheter(s), pacemaker lead(s), or ICD lead(s). Right atrial chamber dimension is normal. Atrial Septum Intact interatrial septum visualized by color flow and agitated saline imaging. Aortic Valve The aortic valve is trileaflet. There is mild aortic valve sclerosis. There is no aortic valve stenosis. There is no aortic valve regurgitation. Pulmonic Valve The pulmonic valve is not well visualized. Mitral Valve There is no mitral valve stenosis. There is mild mitral valve regurgitation. Tricuspid Valve There is mild tricuspid valve regurgitation. Pericardium/Pleural There is no pericardial effusion. Inferior Vena Cava Normal inferior vena cava with >50% collapse upon inspiration consistent with normal right atrial pressure, 3 mmHg. Aorta The aortic root size at the sinus of Valsalva is normal. There is mild aortic atherosclerosis. Left Ventricular Outflow Tract Name Value Normal LVOT 2D LVOT Diameter 2.0 cm LVOT Doppler LVOT Peak Gradient 2 mmHg LVOT Mean Gradient 1 mmHg LVOT VTI 16 cm LVOT VTI/AV VTI Ratio 0.6 LVOT Stroke Volume 47 ml LVOT CO 3.6 l/min LVOT CI 2.3 l/min/m2
[2023-01-29] MEDS: carvediloL 25 MG TABLET PO (08:06)
[2023-01-29] MEDS: ASPIRIN 81 MG ENTERIC TABLET PO (08:07)
[2023-01-29] MEDS: CLOPIDOGREL BISULFATE 75 MG TABLET PO (08:07)
[2023-01-29] MEDS: lisinopriL 10 MG TABLET PO (08:07)
[2023-01-29 08:21] LABS: Glucose Point of Care 121 mg/dl (65-105)
--- NOTE | 2023-01-29 10:03 | WPDNEURCNPN ---
Assessment and Plan Assessment and plan (1) Facial droop: Code(s): R29.810 - Facial weakness Status: Acute (2) CVA (cerebral vascular accident): Code(s): I63.9 - Cerebral infarction, unspecified Status: Acute (3) Hyperlipidemia: Code(s): E78.5 - Hyperlipidemia, unspecified Status: Acute (4) Diabetes type 2, controlled: Code(s): E11.9 - Type 2 diabetes mellitus without complications Status: Acute (5) Hypertension: Code(s): I10 - Essential (primary) hypertension Status: Acute Plan Dixie Ibarra is a 62 year old female with a history of prior stroke/TIA, HTN, DM, HLD presenting due to right facial droop. Concern for possible acute stroke. CTA brain/carotid showed significant focal stenosis in bilateral vertebral arteries. On exam, there is evidence of right facial droop involving upper and lower face. Could also be Wolff's Palsy since she doesn't seem to have any other deficits. - Continue aspirin 81mg and Plavix 75mg daily - Increase Lipitor to 80mg daily - MRI brain w/o contrast should be done as outpatient given pacemaker compatibility - Surface echocardiogram. Consult date: 01/29/23 Reason for consult: Concern for stroke HPI: Dixie Ibarra is a 62 year old female with a history of prior stroke/TIA, HTN, DM, HLD presenting due to right facial droop. Patient's symptoms started around noon on 01/26. Patient stated that she had drooping of the right side of her face and slurred speech. She was also having difficulty drinking from that side. Patient presented to [place] ED where blood pressure was in the 170s systolic. CT head showed small old infarct in the right frontotemporoparietal region and also old infarcts in bilateral basal ganglia, left sameera, and right cerebellum. CTA brain/carotid showed focal high-grade stenosis of the distal right vertebral artery and moderate stenosis of the distal left vertebral artery; there is also atherosclerotic calcifications in the bilateral cavernous internal caroitd arteries, with probably focal moderate stenosis in the cavernous distal R ICA. Her exam in the ED reportedly showed decreased sensation over the right face and right arm. Patient already takes Lipitor 40mg daily and Plavix 75mg. She was started on aspirin during this admission. Review of Systems Constitutional: Constitutional: Reports no additional constitutional complaints Eyes: Eyes: Reports no additional eye complaints ENT: Reports system reviewed and no additional complaints, except as documented Cardiovascular: Cardiovascular: Reports no additional cardiovascular complaints Respiratory: Respiratory: Reports no additional respiratory complaints Gastrointestinal: Gastrointestinal: Reports no additional gastrointestinal complaints Genitourinary: Genitourinary: Reports no additional female genitourinary complaints Musculoskeletal: Musculoskeletal: Reports no additional musculoskeletal complaints Integumentary/Breasts: Skin/Breast: Reports system reviewed and no additional complaints, except as docu Neurologic: Reports as per HPI Psychiatric: Psychiatric: Reports no additional psychiatric complaints PMFSH Past Medical History Medical History CVA (cerebral vascular accident) Diabetes type 2, controlled Hyperlipidemia Hypertension Mitral valve prolapse Pacemaker Surgical History Surgical History History of carpal tunnel release History of tubal ligation Hx laparoscopic cholecystectomy Family History Family History Mother Acute myocardial infarction Cerebrovascular accident Carcinoma of colon Breast cancer Hypertension Heart disease Diabetes mellitus Father Hypertension Acute myocardial infarction Lung disease Sibling Liver cancer Diabetes mellitus Social History Social His
[2023-01-29 12:37] LABS: Glucose Point of Care 148 mg/dl (65-105)
--- NOTE | 2023-01-29 16:37 | PM.DS ---
DS: Admitting Diagnosis Discharge Date January 29, 2023 Admitting Diagnosis CVA DS: Discharge Diagnosis Discharge Diagnosis (1) CVA (cerebral vascular accident): Code(s): I63.9 - Cerebral infarction, unspecified Status: Acute Assessment and Plan: -an echo has been ordered -neurology has been consulted -PT OT evaluation greatly be appreciated. Head CT was read as 1. No acute intracranial process. 2. Small old infarct in the right frontotemporoparietal region which is new since the prior study and a few additional unchanged old infarcts at the bilateral basal ganglia, left smaeera and right cerebellar hemisphere. 3. Moderate scattered white matter hypoattenuation consistent with chronic small vessel ischemic disease. The patient is on Plavix. (2) Hypertension: Code(s): I10 - Essential (primary) hypertension Status: Acute Assessment and Plan: Continue with lisinopril Continue with Coreg (3) Diabetes type 2, controlled: Code(s): E11.9 - Type 2 diabetes mellitus without complications Status: Acute Assessment and Plan: Accu-Cheks AC and HS with sliding scale insulin Hold metformin Continue januvia Rybelsus is non formulary. (4) Hyperlipidemia: Code(s): E78.5 - Hyperlipidemia, unspecified Status: Acute Assessment and Plan: Continue with atorvastatin (5) Mitral valve prolapse: Code(s): I34.1 - Nonrheumatic mitral (valve) prolapse Status: Acute Assessment and Plan: An echo has been ordered DS: Summary Hospital Course Hospital Course: Admitted for CVA. Right facial droop. Medications have been adjusted. She can follow up with her primary care physician and Neurology. Time Spent with Patient Time attestation: Total time spent providing and/or coordinating discharge services: Exam Const: General: cooperative, healthy appearing, comfortable, no acute distress, well developed, awake, Physically active, average body habitus and well nourished Nutritional Appearance: average body habitus and well nourished Orientation/consciousness: oriented to person, oriented to place, oriented to time and patient oriented x3 Limitations: no limitations HENMT: Head: normal to inspection, No palpable skull fracture present, normocephalic, atraumatic and abrasion Ears: hearing grossly normal bilaterally, external ears normal and TM's normal bilaterally Face/Nose/Sinus: Normal external nose present, Normal nares present and No nasal polyps present Mouth: Yes Normal oral and palatal mucosa present Throat: posterior oropharynx normal Other: Left facial drooping Eyes: General: appearance normal, both eyes and all related structures Alignment and Position: alignment normal Periorbital: periorbital findings normal Eyelids: eyelids normal Conjunctivae: conjunctivae normal Sclera: sclerae normal Cornea: corneas normal Pupils: Equal, round and reactive pupils present and Pupil accommodation reflex normal EOM: EOMs intact bilaterally Neck: Neck: normal visual inspection, full ROM, no lymphadenopathy, trachea midline and supple Thyroid: thyroid normal Carotids: normal carotid upstroke Lymphatic: no lymphadenopathy noted Chest: Chest palpation & inspection: normal inspection of the chest Resp: Effort & Inspection: normal respiratory effort Auscultation: clear to auscultation bilaterally Percussion: percussion normal Cardio: Palpation: normal PMI Rate: regular rate Rhythm: regular rhythm Heart sounds: S1 normal heart sound present and S2 normal heart sound present Peripheral pulses: Peripheral pulses 2+ throughout GI: Inspection: normal to inspection Auscultation: normal bowel sounds Rectal Exam: deferred : General: Yes no CVA tenderness Back/Spine/Pelvis: Back: no CVA tenderness Cervical Spine: cervical ROM normal Thoracic/Lumbar Spine: thoracic and lumbar spine normal to inspection Pelvis: no pain with anterior-posterior compression Sk
== END 2023-01-29 17:30 | disposition home or self-care (01) | DRG 66 ==
LOC: ANHED 14:34 → ANH3MED 14:49
PROVIDERS: Nurse Practitioner; Admitting Provider Internal Medicine; Emergency Provider Emergency Medicine; PCP Family Medicine; Visit Provider Chiropractor
DX: I63.9 Cerebral infarction, unspecified (principal); R29.810 Facial weakness; R47.81 Slurred speech; R29.703 NIHSS score 3; I10 Essential (primary) hypertension; E11.9 Type 2 diabetes mellitus without complications; E78.5 Hyperlipidemia, unspecified; I34.1 Nonrheumatic mitral (valve) prolapse; I65.23 Occlusion and stenosis of bilateral carotid arteries; I65.03 Occlusion and stenosis of bilateral vertebral arteries; Z88.5 Allergy status to narcotic agent; Z95.0 Presence of cardiac pacemaker; Z79.84 Long term (current) use of oral hypoglycemic drugs
CPT/HCPCS: 36415; 70450; 70496; 70498; 71045; 80053; 81025; 82948; 83036; 84484; 85025; 85610; 85730; 93005; 96375; 97161; 97165; 99285; A9270; C8929; G0378; Q9967

== ENCOUNTER 2023-04-12 00:55 | Day surgery (SDC) | payer BC, SELFPAY ==
[2023-04-11 15:35] VITALS: BMI 23.1
[2023-04-12] VITALS (13 sets, daily range): BP systolic 137–172; BP diastolic 78–102; PULSE 68–75; RESP 12–20; TEMP 36.4–36.6; O2SAT 98–100; BMI 23.3
[2023-04-12 07:32] LABS: Basophils Absolute Auto 0.1 K/mm3 (0.0-0.1); Basophils Percent Auto 0.9 % (0.2-1.2); Eosinophils Absolute Auto 0.5 K/mm3 (0-0.3); Eosinophils Percent Auto 9.1 % (0-4.4); Hematocrit 38.7 % (37.0-47.0); Hemoglobin 12.6 g/dL (12.0-15.0); Immature Granulocyte Absolute 0.01 K/mm3 (0.00-0.031); Immature Granulocyte Percent A 0.2 % (0-0.5); Lymphocytes Absolute Auto 1.63 K/mm3 (0.9-3.2); Lymphocytes Percent Auto 30.8 % (18.3-44.2); Mean Corpuscular HGB Conc 32.6 g/dl (32-36); Mean Corpuscular Hemoglobin 30.3 pg (26-34); Mean Platelet Volume 11.4 fl (7.4-10.4); Monocytes Absolute Auto 0.5 K/mm3 (0.1-0.6); Monocytes Percent Auto 10.2 % (2.6-8.5); Neutrophils Absolute Auto 2.6 K/mm3 (1.3-6.7); Neutrophils Percent Auto 48.8 % (45.5-73.1); Platelet Count Result 154 k/mm3 (150-375); Red Blood Count 4.16 M/mm3 (4.2-5.4); Red Cell Distribution Width 13.1 % (11.5-14.5); White Blood Count 5.3 K/mm3 (4.5-10.0)
--- NOTE | 2023-04-12 09:13 | WPDHPUPDATE1 ---
History and Physical Update Update Date/Time: 04/12/23 09:13 History and Physical has been reviewed, including an updated exam of the patient. There are NO changes in the patient's condition. Risks, benefits, and alternatives have been discussed and questions answered. Patient agrees to proceed with procedure.
--- NOTE | 2023-04-12 09:13 | WPDMODSED ---
Moderate Sedation Note-Pt Data Patient Data Diagnosis: Abnormal stress test Present Complaint: Abnormal stress test Procedure to be performed/Plan: Coronary angiography, LHC, +/- PCI Allergies Allergy/AdvReac Type Severity Reaction Status Date / Time hydrocodone AdvReac Intermediate N/V;DIZZINE Verified 04/12/23 07:19 SS Home Medications Medication Instructions Recorded Confirmed Type carvedilol 25 mg tablet 25 mg PO DAILY 08/16/22 04/11/23 History clopidogrel 75 mg tablet 75 mg PO DAILY 08/16/22 04/11/23 History cyanocobalamin (vitamin B-12) 1,000 mcg subcut [id number] 08/16/22 04/11/23 History 1,000 mcg/mL injection solution lisinopril 10 mg tablet 10 mg PO DAILY 08/16/22 04/11/23 History metformin 500 mg tablet,extended 1,000 mg PO DAILY 08/16/22 04/11/23 History release 24 hr semaglutide 7 mg tablet (Rybelsus) 7 mg PO DAILY 08/16/22 04/11/23 History sitagliptin phosphate 100 mg 100 mg PO HS 08/16/22 04/11/23 History tablet (Januvia) aspirin 81 mg tablet,delayed 81 mg PO QAM 30 days #30 tabs 01/29/23 04/11/23 Rx release atorvastatin 80 mg tablet 80 mg PO DAILY #30 tabs 01/29/23 04/11/23 Rx pregabalin 50 mg capsule 100 mg PO DAILY 04/11/23 04/11/23 History tramadol 37.5 mg-acetaminophen 325 1 tablet PO DAILY PRN Pain 04/11/23 04/11/23 History mg tablet Current Medications: Active Medications Sodium Chloride (Normal Saline Iv) 500 mls @ 100 mls/hr IV CONT .Q5H VARGAS Sedation/Anesthesia: No previous sedation/anesthesia problems (including family history). [facility] Past Medical History Medical History CVA (cerebral vascular accident) Diabetes type 2, controlled Hyperlipidemia Hypertension Mitral valve prolapse Pacemaker Surgical History Surgical History History of carpal tunnel release History of tubal ligation Hx laparoscopic cholecystectomy Family History Family History Mother Acute myocardial infarction Cerebrovascular accident Carcinoma of colon Breast cancer Hypertension Heart disease Diabetes mellitus Father Hypertension Acute myocardial infarction Lung disease Sibling Liver cancer Diabetes mellitus Social History Social History Social History: She is and lives with . They have 5 children. 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 Code status full code Smoking status: Never smoker Second hand tobacco smoke exposure: Yes (parents smoked) Alcohol intake: never Substance use: never Substance use type: does not use Lack of Transportation: No Lack of Food: Never True Current Housing: I Have Housing Concerned About Future Housing: No Difficulty Paying Gas/Electric Bills: No Difficulty Paying for Meds: No Currently Unemployed: No Education: High School Diploma/GED Difficulty w/ Childcare or Family Care: No Living arrangements: with family Gender identity (if verbalized by the patient): Female Sexual Orientation (if Verbalized by the Patient): Straight or Heterosexual Spiritual care concerns: No Mod Sed Physical Exam Physical Exam Pre Procedural Exam: Normal: Appearance, Lungs, Heart Rate, Heart Rhythm, Neuro Exam, Abdomen, Extremities and Skin Hours since solid foods: 12 Hours since liquid intake: 8 Mallampati Classification: class II Internal Medicine - PN: Obj Da Vital Signs Vital Signs: Vital Signs - 24 hr 04/12/23 07:30 Temperature 36.4 C Pulse Rate 68 Respiratory Rate 14 Blood Pressure 155/84 H Pulse Oximetry 98 Oxygen Delivery Room Air Meds/Results Medications: Active Medications Generic Name Dose Route Start Last Admin Trade Name Freq PRN Reason Stop Dose Admin Sodium Chloride 500 mls @ 100 mls/hr 04/12/23 07:00 Normal Saline Iv IV CONT .Q5H
--- NOTE | 2023-04-12 11:10 | WPDCARDPROC ---
Cardiac Cath Procedure Note Date of procedure:: 04/12/23 Performing physician:: CATHETERIZATION LABORATORY REPORT Procedure Date: 04/12/2023 Director Of Women'S Services: Hudson Cortes M.D., [facility]? Referring Physician: William Espinoza M.D. ? Anesthesia: Versed and Fentanyl were ordered and given in my presence at 09:13, procedure ended at 10:23. Supervision of nurse monitored moderate sedation with Versed and Fentanyl was provided for 70 minutes. Total of Versed 1mg and Fentanyl 25mcg were administered by the Seed Tester RN Fior Francisco. Pre-op Diagnosis: Coronary artery disease Post-op Diagnosis: 1. Chronic subtotal occlusion of the mid LAD. Attempted PCI of this lesion, but unable to cross lesion with wire. 2. First diagonal vessel has a high proximal origin off the LAD and has ostial 70-80% stenosis. 3. Elevated left ventricular end-diastolic pressure of 30mmHg 4. Uncontrolled hypertension Procedure(s): 1. Moderate sedation 2. Ultrasound-guided access of the right radial artery 3. Coronary angiography 4. Left heart cath Access Site: Right radial artery Brief History and Clinical Indications: Patient is a 62 year old female who is referred for [facility] for abnormal stress test. All risks, benefits and alternatives to left heart catheterization with or without percutaneous coronary intervention was discussed at length with the patient. Risk of complications including but not limited to bleeding, infection, arrhythmia, stroke, worsening kidney function, blood loss, groin hematoma, limb loss, emergency coronary artery bypass grafting, and even were discussed with the patient and all questions were answered. The patient understood and wished to proceed. Time out called, patient name, date of , medical record number, allergies, procedure performed, identify Director Of Women'S Services, patient and staff member concurred with accurate data, procedure carried on. Findings: LEFT HEART CATHETERIZATION FINDINGS: 1. Left main: The left main coronary artery is widely patent without any significant obstructive disease. 2. Left anterior descending: The LAD is small caliber throughout the whole vessel. The first septal branch has subtotal occlusion of its ostium. The first diagonal branch has a high proximal origin off the LAD, and has a 70-80% ostial stenosis. There is a subtotal occlusion in the mid LAD with diffuse disease distal to the subtotal occlusion. There is MONTRELL 2 flow in the distal LAD. 3. Left circumflex: Large caliber vessel. The proximal portion has luminal irregularities. The mid portion has mild 20% disease. Distal portion with luminal irregularities. OM vessels have luminal irregularities. No significant obstructive angiographic disease in LCX/OM. 4. Right coronary artery: Large caliber vessel. The RCA is the dominant vessel. There is mild disease in the mid portion. RPLV and RPDA with mild luminal irregularities. No significant obstructive angiographic disease in RCA. 5. Left ventricle: A. End-diastolic pressure 30mmHg. B. LV gram deferred. C. No significant gradient across aortic valve on catheter pullback. Description of Procedure: Informed consent signed and placed in the chart. Patient transferred to cardiac catheterization technician room. Prepped and draped in usual sterile fashion. 2% lidocaine injected subcutaneously in right wrist area. 22-gauge venipuncture catheter used to access the right radial artery with the Seldinger technique. 6-FR slender sheath placed in right radial artery. Nitroglycerine and Verapamil were given intraarterial through the sheath. Versacore wire advanced under fluoroscopy 5F Tig 4 diagnostic catheter engaged Left Main Coronary Artery. 5F Tig 4 diagnostic catheter engaged Right Coronary Artery Multiple orthogonal angiogram obtained and reviewed 5F Pigtail diagnostic catheter crossed aortic valve to obtain LVEDP, LV angiogram deferred. Angiograms reviewed, and decision made to proceed with PCI of LAD lesion. Angiomax us
[2023-04-12 11:14] LABS: Anion Gap 7 mmol/L (8-16); Blood Urea Nitrogen 9 mg/dL (7-17); Calcium 8.9 mg/dL (8.4-10.2); Carbon Dioxide 29 mmol/L (22-30); Chloride 104 mmol/L (98-107); Estimated Glomerular Filt Rate > 60; Glucose 145 mg/dL (65-110); Potassium 3.5 mmol/L (3.4-5.0); Sodium 140 mmol/L (137-145)
== END 2023-04-12 15:45 | disposition home or self-care (01) ==
PROVIDERS: PCP Family Medicine; Visit Provider Internal Medicine
PROC: 4A023N7 Measurement of Cardiac Sampling and Pressure, Left Heart, Percutaneous Approach (ICD-10-PCS; CPT 93452; principal; 2023-04-12 08:30)
PROC: (CPT 92920; 2023-04-12 08:30)
DX: I25.10 Atherosclerotic heart disease of native coronary artery without angina pectoris (principal); I25.82 Chronic total occlusion of coronary artery; I10 Essential (primary) hypertension; K21.9 Gastro-esophageal reflux disease without esophagitis; E11.9 Type 2 diabetes mellitus without complications; E78.5 Hyperlipidemia, unspecified; Z86.73 Personal history of transient ischemic attack (TIA), and cerebral infarction without residual deficits
CPT/HCPCS: 36415; 80048; 85025; 92920; 93458; C1769; C1887; C1894; J0583; J1644; J2250; J3010; J7040

== ENCOUNTER 2023-05-10 13:21 | Emergency (ER) | payer BC, SELFPAY ==
[2023-05-10 13:30] VITALS: PULSE 0
--- NOTE | 2023-05-10 13:39 | ED.CPR ---
HPI - CPR General Chief Complaint: Cardiac Arrest/CPR Stated Complaint: ambulance Time Seen by Provider: 05/10/23 13:34 Source: EMS Mode of arrival: EMS History of Present Illness HPI narrative: this is a 62-year-old female that was at home and was found to be in cardiac arrest witnessed by her which initially started CPR and EMS was called, and the patient was found in cardiac arrest and was given cardioversion approximately 8 times, patient was intubated and CPR was started, and the patient was given by EMS 8 rounds of epi and 2 rounds of amiodarone. Patient is going to be met by a arch for air back to hospital but patient was in cardiac arrest and brought to the emergency department. Patient was intubated and CPR was continued and another 3 rounds of epinephrine were given. Patient with a history of diabetes, history of coronary artery disease with 2 stents. MD complaint: found unresponsive Onset (ago): minute(s) Timing confirmed by: spouse Place: home Bystander CPR performed: Yes Related Data Home Medications Medication Instructions Recorded Confirmed carvedilol 25 mg tablet 25 mg PO DAILY 08/16/22 04/11/23 clopidogrel 75 mg tablet 75 mg PO DAILY 08/16/22 04/11/23 cyanocobalamin (vitamin B-12) 1,000 mcg subcut [id number] 08/16/22 04/11/23 1,000 mcg/mL injection solution lisinopril 10 mg tablet 10 mg PO DAILY 08/16/22 04/11/23 metformin 500 mg tablet,extended 1,000 mg PO DAILY 08/16/22 04/11/23 release 24 hr semaglutide 7 mg tablet (Rybelsus) 7 mg PO DAILY 08/16/22 04/11/23 sitagliptin phosphate 100 mg 100 mg PO HS 08/16/22 04/11/23 tablet (Januvia) pregabalin 50 mg capsule 100 mg PO DAILY 04/11/23 04/11/23 tramadol 37.5 mg-acetaminophen 325 1 tablet PO DAILY PRN Pain 04/11/23 04/11/23 mg tablet Allergies Allergy/AdvReac Type Severity Reaction Status Date / Time hydrocodone AdvReac Intermediate N/V;DIZZINE Verified 04/12/23 07:19 SS Review of Systems Review of Systems: All systems reviewed & are unremarkable except as noted in HPI and below PMFSH Past Medical History Medical History CVA (cerebral vascular accident) Diabetes type 2, controlled Hyperlipidemia Hypertension Mitral valve prolapse Pacemaker Surgical History Surgical History History of carpal tunnel release History of tubal ligation Hx laparoscopic cholecystectomy Family History Family History Mother Acute myocardial infarction Cerebrovascular accident Carcinoma of colon Breast cancer Hypertension Heart disease Diabetes mellitus Father Hypertension Acute myocardial infarction Lung disease Sibling Liver cancer Diabetes mellitus Social History Social History Social History: She is and lives with . They have 5 children. 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 Code status full code Smoking status: Never smoker Second hand tobacco smoke exposure: Yes (parents smoked) Alcohol intake: never Substance use: never Substance use type: does not use Lack of Transportation: No Lack of Food: Never True Current Housing: I Have Housing Concerned About Future Housing: No Difficulty Paying Gas/Electric Bills: No Difficulty Paying for Meds: No Currently Unemployed: No Education: High School Diploma/GED Difficulty w/ Childcare or Family Care: No Living arrangements: with family Gender identity (if verbalized by the patient): Female Sexual Orientation (if Verbalized by the Patient): Straight or Heterosexual Spiritual care concerns: No Exam Narrative: Patient brought in by EMS with CPR in progress, the patient intubated and patient was cardioverted as well as some patient was given epinephrine and amiodarone. CPR was continued
--- NOTE | 2023-05-10 16:15 | PC.NURSE ---
RN phoned [facility] in [place], [place] spoke with Es, who confirmed patient has existing apt for tomorrow. Notified office that patient will not be making scheduled apt for procedure per request from patient spouse Juliocesar.
== END 2023-05-10 13:32 | disposition expired ==
PROVIDERS: Emergency Provider Emergency Medicine
DX: I46.9 Cardiac arrest, cause unspecified (principal); E78.5 Hyperlipidemia, unspecified; E11.9 Type 2 diabetes mellitus without complications; I10 Essential (primary) hypertension; Z79.84 Long term (current) use of oral hypoglycemic drugs; Z86.73 Personal history of transient ischemic attack (TIA), and cerebral infarction without residual deficits
CPT/HCPCS: 92950; 99285; J0171